=== PATIENT | female | born 1975 | race Caucasian/White ===

== ENCOUNTER 2016-07-15 12:24 | Emergency (ER) | payer SELFPAY ==
[~2016-07-15] VITALS: Ht 165.1 cm; Wt 57.2 kg
[2016-07-15 12:27] VITALS: BP 132/96
--- NOTE | 2016-07-15 13:54 | NUR ---
PATIENT TO BED 8 AT THIS TIME.
--- NOTE | 2016-07-15 14:00 | NUR ---
41F BIB SELF C/O DULL/ACHING, LEFT FLANK PAIN, RADIATING TO LEFT INGUINAL X 5 DAYS W/ HEMATURIA; PT C/O NAUSEA, BUT DENIES VOMITING/DIARRHEA AT THIS TIME; ABDOMEN SOFT, NON-TENDER, ACTIVE BOWEL SOUNDS X 4 QUADRANTS; PT A&OX4, PERRLA, BL LUNG SOUNDS CLEAR, RR EVEN/UNLABORED, SKIN IS WARM/DRY/INTACT AT THIS TIME; PT RESTING IN BED W/ HOB ELEVATED AND IN LOWEST POSITION; POSITIONED FOR COMFORT; ER MD MADE AWARE OF STATUS. WILL CONTINUE TO MONITOR.
--- NOTE | 2016-07-15 14:14 | NUR ---
PT TAKEN TO CT VIA W/C ACCOMPANIED BY REVERSER.
[2016-07-15] MEDS ORDERED: PHENAZOPYRIDINE 100 MG TAB PO ONE (14:35)
[2016-07-15] MEDS ORDERED: NACL 0.9% 1,000 ML IV ONE (14:35)
[2016-07-15] MEDS ORDERED: ONDANSETRON 4 MG/2 ML VIAL IVP ONE (14:35)
[2016-07-15] MEDS ORDERED: HYDROmorphone 1 MG/ML AMP IVP ONE (14:40)
[2016-07-15 15:13] LABS: ANION GAP 16.5 (8-16); CALCIUM 8.6 mg/dL (8.5-10.1); CARBON DIOXIDE 22.6 mmol/L (21-32); POTASSIUM 4.1 mmol/L (3.5-5.1)
[2016-07-15 15:45] VITALS: BP 135/72
--- NOTE | 2016-07-15 15:45 | NUR ---
Patient discharged with v/s stable. Written and verbal after care instructions given and explained. Patient alert, oriented and verbalized understanding of instructions. Ambulatory with steady gait. All questions addressed prior to discharge. ID band removed. Patient advised to follow up with PMD. Rx of ZOFRAN 4MG ODT AND NORCO 5/325MG given. Patient educated on indication of medication including possible reaction and side effects. Opportunity to ask questions provided and answered.
== END 2016-07-15 15:45 | disposition home or self-care (01) ==
LOC: MED 12:24
DX: K52.9 Noninfective gastroenteritis and colitis, unspecified (principal); Z87.442 Personal history of urinary calculi; Z98.84 Bariatric surgery status; Z90.49 Acquired absence of other specified parts of digestive tract; Z95.0 Presence of cardiac pacemaker; Z98.890 Other specified postprocedural states; Z88.0 Allergy status to penicillin
CPT/HCPCS: 36415; 74176; 80048; 81002; 81025; 96361; 96374; 96375; 99285; J1170; J2405; J7030